=== PATIENT | male | born 1995 | race Caucasian/White ===

== ENCOUNTER 2025-09-27 13:06 | Outpatient (RCR) | payer MEDICAID, SELFPAY ==
--- NOTE | 2025-09-27 14:21 | PT.OIERPT ---
PT OP Initial Eval Patient Information Visit Reasons: CEREBRAL PALSY Medical Diagnosis: Cerebral Palsy; Right UE Pain Treatment Dx #1: Right UE Pain Treatment Dx #2: Right UE Coordination Deficits Start of Care: 09/27/25 Date of Onset: Age 3 Smoking Status Smoking Status: Current every day smoker Cessation Counseling Provided: CECILIO was advised that quitting smoking is the single most important factor to protect the health of themselves and their family. Discussed the benefits of quitting smoking with patient. Encouraged patient to quit smoking and provided Cessation assistance materials and resources. Tobacco Use: Cigarette Years smoked: 9 Are you interested in quitting?: No Would you like additional Smoking Cessation Counseling?: No Initial Assessment Subjective: Pt is a 29 y/o male who was born with cerebral palsy complains of right UE pain (6/10) and weakness. Pt has limitation with overhead motions, lifting, chores, self care, smoking, gripping, and performing recreational activities. Objective: Right UE AROM: all motions are WFL Right UE MMTs: grossly 4-/5 Special Test (+) right finger to nose (+) dysdiadochokinesia Assessment: Pt demonstrate right UE strength and coordination deficits leading to difficulty with ADLs. Pt will benefit from physical therapy to increase strength, work on coordination, and overall mobility. Short Term and Ground Support Equipment [employer]ic Goals 1) Increase right UE MMTs grossly to 4/5 in 6 wks to be able to perform overhead motions 2) Decrease shoulder pain to 2/10 in 6 wks to be able to perform recreational activities 3) Increase right shoulder AROM WNL in 6 wks to be able to perform self care activities 4) Indep with HEP Treatment Plan 1) Manual Therapy 2) Therapeutic Activities 3) Therapeutic Exercises 4) Modalities (ice, heat) Frequency and Duration: 2 x wk for 6 wks Certification Dates: 09/27/25 to 12/26/25 Procedure Charges OP PT Eval Mod Complex 30 minutes: Yes
== END 2025-10-12 23:59 | disposition home or self-care (01) ==
LOC: CPTX 13:06
PROVIDERS: PCP Physician Assistant; Referring Provider Physician Assistant; Visit Provider Physician Assistant
DX: M79.601 Pain in right arm (principal); R53.1 Weakness; G80.9 Cerebral palsy, unspecified; Z71.6 Tobacco abuse counseling; F17.210 Nicotine dependence, cigarettes, uncomplicated
CPT/HCPCS: 97162